=== PATIENT | male | born 1950 | race Caucasian/White ===

== ENCOUNTER 2018-07-27 13:54 | Emergency (ER) | payer OTHER ==
[~2018-07-27] VITALS: Ht 172.7 cm; Wt 61.2 kg
== END 2018-07-27 18:08 | disposition home or self-care (01) ==
LOC: ER 13:54
DX: R07.89 Other chest pain (principal); H57.11 Ocular pain, right eye; R51 Headache; S20.212S Contusion of left front wall of thorax, sequela; S00.11XS Contusion of right eyelid and periocular area, sequela; S00.53 Contusion of lip and oral cavity; Y04.2XXS Assault by strike against or bumped into by another person, sequela